=== PATIENT | female | born 1990 | race African-American/Black ===

== ENCOUNTER 2017-11-11 10:55 | Emergency (ER) | payer MEDICAID, OTHER ==
[~2017-11-11] VITALS: Ht 170.2 cm; Wt 113.0 kg
[2017-11-11 11:08] VITALS: BP 152/91
[2017-11-11 13:40] LABS: BASOPHILS % 0.5 % (0.0-2.0); EOSINOPHILS % 1.9 % (0.0-5.0); HEMATOCRIT. 39.8 % (36.0-48.0); HEMOGLOBIN. 13.1 g/dL (12.0-16.0); LYMPHOCYTES % 21.3 % (20.0-50.0); MEAN CORPUSCULAR HEMOGLOBIN 29.6 pg (28.0-32.0); MEAN CORPUSCULAR VOLUME 89.7 fL (81.0-99.0); MEAN PLATELET VOLUME 7.2 fl (7.4-10.4); MONOCYTES % 5.9 % (2.0-8.0); NEUTROPHILS % 70.4 % (40.0-76.0); PLATELET 384 x1000/uL (130-400); RED BLOOD CELL COUNT 4.43 mill/uL (4.2-5.4); RED CELL DISTRIBUTION WIDTH 13.1 % (11.6-14.6)
[2017-11-11 13:54] LABS: CLARITY URINE CLOUDY (CLEAR); COLOR URINE YELLOW (YELLOW); KETONES URINE NEGATIVE (NEGATIVE); LEUKOCYTE ESTERASE URINE NEGATIVE (NEGATIVE); NITRITE URINE NEGATIVE (NEGATIVE); OCCULT BLOOD URINE TRACE (NEGATIVE); PH URINE 5.5 (4.5-8.0); PROTEIN URINE TRACE (NEGATIVE); SPECIFIC GRAVITY URINE 1.023 (1.005-1.030)
[2017-11-11 13:56] LABS: CARBON DIOXIDE 31 mEq/L (21-32); CHLORIDE 107 mEq/L (98-107)
[2017-11-11 14:58] LABS: *AMPHETAMINES SCREEN URINE NEGATIVE (NEGATIVE); *BARBITURATES SCREEN URINE NEGATIVE (NEGATIVE); *BENZODIAZEPINES SCREEN URINE NEGATIVE (NEGATIVE); *COCAINE SCREEN URINE NEGATIVE (NEGATIVE); METHADONE URINE SCREEN NEGATIVE (NEGATIVE); OPIATES URINE SCREEN NEGATIVE (NEGATIVE); PHENCYCLIDINE URINE SCREEN NEGATIVE (NEGATIVE)
[2017-11-11 15:02] LABS: CANNABINOID URINE SCREEN PRESUMTIVE POSITIVE (NEGATIVE)
== END 2017-11-11 15:08 | disposition home or self-care (01) ==
LOC: ER 10:55
DX: M25.531 Pain in right wrist (principal); R42 Dizziness and giddiness; R53.1 Weakness
CPT/HCPCS: 29125; 36415; 73110; 80053; 80305; 81001; 81025; 85025; 93005; 99285

== ENCOUNTER 2018-01-09 18:39 | Emergency (ER) | payer OTHER ==
[~2018-01-09] VITALS: Ht 172.7 cm; Wt 109.0 kg
[2018-01-09 18:56] VITALS: BP 134/81
[2018-01-09] MEDS ORDERED: ACET-2178 PO (18:59)
== END 2018-01-09 21:58 | disposition left against medical advice (07) ==
LOC: ER 20:42
DX: R50.9 Fever, unspecified (principal); Z53.21 Procedure and treatment not carried out due to patient leaving prior to being seen by health care provider

== ENCOUNTER 2018-04-17 01:03 | Emergency (ER) | payer OTHER ==
[~2018-04-17] VITALS: Ht 172.7 cm; Wt 107.0 kg
[~2018-04-17 01:03] MED LIST: ACET-2178 PO
[2018-04-17] MEDS ORDERED: KETOROLAC 30MG/ML VIAL IM STA (03:49)
[2018-04-17] MEDS ORDERED: ONDANSETRON 4MG ODT PO STA (03:49)
[2018-04-17] MEDS ORDERED: ACETAMINOPHEN 325MG TABLET PO STA (03:49)
[2018-04-17 04:06] LABS: BASOPHILS % 0.8 % (0.0-2.0); EOSINOPHILS % 1.9 % (0.0-5.0); HEMOGLOBIN. 12.8 g/dL (12.0-16.0); LYMPHOCYTES % 18.8 % (20.0-50.0); MEAN CORPUSCULAR HEMOGLOBIN 29.9 pg (28.0-32.0); MEAN PLATELET VOLUME 7.7 fl (7.4-10.4); MONOCYTES % 7.6 % (2.0-8.0); NEUTROPHILS % 70.9 % (40.0-76.0); PLATELET 328 x1000/uL (130-400); RED BLOOD CELL COUNT 4.27 mill/uL (4.2-5.4); RED CELL DISTRIBUTION WIDTH 13.4 % (11.6-14.6)
[2018-04-17 04:15] LABS: INR 1.1; PROTHROMBIN TIME 11.2 sec (9.4-11.6)
[2018-04-17 04:16] LABS: CHLORIDE 108 mEq/L (98-107)
[2018-04-17 04:24] LABS: HCG SCREEN NEGATIVE
[2018-04-17] MEDS ORDERED: METRONIDAZOLE 500MG TABLET PO ONE (05:00)
[2018-04-17] MEDS ORDERED: DOXYCYCLINE HYCLATE 100MG CAPSULE PO ONE (05:00)
[2018-04-17] MEDS ORDERED: CEFTRIAXONE SODIUM 250 MG/VIAL IM ONE (05:00)
[2018-04-17 05:44] LABS: CLARITY URINE CLOUDY (CLEAR); COLOR URINE YELLOW (YELLOW); KETONES URINE NEGATIVE (NEGATIVE); LEUKOCYTE ESTERASE URINE 2+ (NEGATIVE); NITRITE URINE NEGATIVE (NEGATIVE); OCCULT BLOOD URINE 3+ (NEGATIVE); PROTEIN URINE 1+ (NEGATIVE); SPECIFIC GRAVITY URINE 1.032 (1.005-1.030)
[2018-04-17 06:45] VITALS: BP 126/78
== END 2018-04-17 06:48 | disposition home or self-care (01) ==
LOC: ER 01:03
DX: N73.9 Female pelvic inflammatory disease, unspecified (principal); N39.0 Urinary tract infection, site not specified; Z98.890 Other specified postprocedural states; Z91.013 Allergy to seafood
CPT/HCPCS: 36415; 80053; 81003; 83690; 84703; 85025; 85610; 87077; 87086; 87186; 96372; 99284; J0696; J1885; Q0162; Z7610

== ENCOUNTER 2022-09-01 01:00 | Emergency (ER) | payer OTHER ==
[~2022-09-01 01:00] MED LIST changes: -ACET-2178 PO; +TOPUD PO
== END 2022-09-01 03:03 | disposition left against medical advice (07) ==
LOC: ER 01:00
DX: Z53.21 Procedure and treatment not carried out due to patient leaving prior to being seen by health care provider (principal)